=== PATIENT | female | born 1965 | race Caucasian/White ===

== ENCOUNTER → 2024-11-09 | Outpatient (CLI) | payer MEDICAID, SELFPAY ==
--- NOTE | 2024-11-09 14:45 | XR_ITS ---
Examination: Breast ultrasound, unilateral, right Date and time of exam: November 09, 2024 1532 hours INDICATIONS: Mammogram November 29, 2023 17 mm nodule retroareolar region right breast Technique: Real-time schwartz scale ultrasonographic imaging performed right breast including all 4 quadrants as well as nipple retroareolar and axillary region. Findings: Retroareolar nodule 8 x 4 x 10 mm circumscribed IMPRESSION: BI-RADS Category 3: Probably benign findings One additional 6 month right breast sonogram follow-up is needed to document stability of retroareolar nodule described above
--- NOTE | 2024-11-09 15:15 | XR_ITS ---
Examination: Diagnostic digital mammography, bilateral Computer aided detection 3-D breast Tomosynthesis, bilateral Date and time of exam: November 09, 2024 1538 hours Compared to mammograms dated to May 26, 2018 Technique: Nonmagnified MLO, CC views of the breasts to been obtained, reconstructed from 3-D Tomosynthesis images. R2 computer aided detection program utilized for evaluation of suspicious masses and/or abnormal calcifications. 3-D Tomosynthesis images obtained. Findings: Scattered areas of fibroglandular density. Benign calcifications. 8mm retroareolar nodule Impression: BI-RADS Category 3: Probably benign findings One additional 6 month right mammogram follow-up is needed to document stability of retroareolar nodule described above.
== END | disposition home or self-care (01) ==
PROVIDERS: PCP Student in an Organized Health Care Education/Training Program; Referring Provider Student in an Organized Health Care Education/Training Program; Visit Provider Student in an Organized Health Care Education/Training Program
DX: R92.333 Mammographic heterogeneous density, bilateral breasts (principal); N63.41 Unspecified lump in right breast, subareolar
CPT/HCPCS: 76641; 77062; 77066; G0279

== ENCOUNTER → 2025-08-17 | Outpatient (CLI) | payer MEDICAID, SELFPAY ==
--- NOTE | 2025-08-17 11:00 | XR_ITS ---
Examination: Breast ultrasound, unilateral, right Date and time of exam: August 17, 2025, 1133 hours INDICATIONS: Mammogram November 28, 2024 7 mm nodule retroareolar region right breast Technique: Real-time schwartz scale ultrasonographic imaging performed right breast including all 4 quadrants as well as nipple retroareolar and axillary region. Findings: Retroareolar nodule lobular margins 9 x 5 x 4 mm Probably benign 3.2 cm right axillary lymph node IMPRESSION: BI-RADS Category 3: Probably benign findings Recommend 1 additional 6-month right breast sonogram follow-up to document stability of retroareolar nodule described above as well as right axillary lymphadenopathy
--- NOTE | 2025-08-17 11:30 | XR_ITS ---
Examination: Diagnostic digital mammography, unilateral, right Computer aided detection 3-D breast Tomosynthesis, unilateral Date and time of exam: 08/17/2025, 11:24 a.m. Comparisons September 2020 through October 2024: Indications: September 2020 through October 2024 Technique: Nonmagnified MLO, CC views of the right breast have been obtained, reconstructed from 3-D Tomosynthesis images. R2 computer aided detection program utilized for evaluation of suspicious masses and/or abnormal calcifications. 3-D Tomosynthesis images obtained. Technologist: Findings: There are scattered areas of fibroglandular density. Stable benign-appearing retroareolar focal asymmetry. Otherwise, no evidence of abnormal masses or suspicious calcifications. Impression: BI-RADS category 2: Benign findings Recommend 1 year follow-up mammogram
== END | disposition home or self-care (01) ==
PROVIDERS: PCP Family Medicine; Referring Provider Family Medicine; Visit Provider Family Medicine
DX: R92.321 Mammographic fibroglandular density, right breast (principal); N63.41 Unspecified lump in right breast, subareolar; N63.31 Unspecified lump in axillary tail of the right breast
CPT/HCPCS: 76641; 77061; 77065; G0279